=== PATIENT | female | born 1950 | race Caucasian/White ===

== ENCOUNTER 2017-06-14 20:23 | Observation (INO) | payer MEDICARE, BC ==
--- NOTE | 2017-06-15 00:39 | ER Document Report ---
ED General - General Mode of Arrival: Wheelchair Information source: Patient, Relative - daughter TRAVEL OUTSIDE OF THE [place] IN LAST 30 DAYS: No <MATILDE AJ - Last Filed: 06/15/17 03:49> <ANDREAS MERAZ - Last Filed: 06/15/17 03:49> - General Chief Complaint: Altered Mental Status Stated Complaint: SLURRED SPEECH Time Seen by Provider: 06/15/17 00:05 Notes: Patient is a 59-year-old female presented to emergency department for and episode of confusion and disorientation. Patient is here visiting her daughter who states the patient had a busy day today and she took a nap in the chair this evening. Daughter states the patient woke up and was very disoriented to person and time, confused, not making sentences, and she was also aggressive/ mean. Patient did have some slight tingling in her face and was unsteady when walking so she held onto 2 people, 1 on each side. Patient's episode lasted about 30 minutes and daughter states that she is back to baseline now. Patient has a history of diabetes mellitus and used to have hypertension but it has gotten better recently over the last several years. Patient did have a mini stroke or possible TIA in February. Patient has had CTs, MRI, echocardiogram, and been evaluated by neurology since this episode. Patient is a poor historian. Patient takes a daily Aspirin. Patient denies any history of A-fib or irregular heart rate. Patient has no known drug allergies. (MATILDE AJ) - Related Data Allergies/Adverse Reactions: No Known Allergies Allergy (Unverified 06/14/17 20:32) Past Medical History - General Information source: Patient, Relative - daughter - Social History Smoking Status: Never Smoker Cigarette use (# per day): No Chew tobacco use (# tins/day): No Smoking Education Provided: No Frequency of alcohol use: Rare Drug Abuse: None Family History: None Patient has suicidal ideation: No Patient has homicidal ideation: No - Past Medical History Cardiac Medical History: Reports: Hx Hypertension Neurological Medical History: Reports: Hx Cerebrovascular Accident - possible mini stroke or TIA February 2017 Endocrine Medical History: Reports: Hx Diabetes Mellitus Type 2 Surgical Hx: Negative <MATILDE AJ - Last Filed: 06/15/17 03:49> Review of Systems - Review of Systems Constitutional: No symptoms reported EENT: No symptoms reported Cardiovascular: No symptoms reported. denies: Chest pain Respiratory: No symptoms reported. denies: Short of breath Gastrointestinal: No symptoms reported Genitourinary: No symptoms reported Female Genitourinary: No symptoms reported Musculoskeletal: See HPI Skin: No symptoms reported Hematologic/Lymphatic: No symptoms reported Neurological/Psychological: See HPI, Confusion, Tingling, Other -: Yes All other systems reviewed and negative <MATILDE AJ - Last Filed: 06/15/17 03:49> Physical Exam - Vital signs Interpretation: Normal <MATILDE AJ - Last Filed: 06/15/17 03:49> <AMANDADEEPIKAANDREAS - Last Filed: 06/15/17 03:49> - Vital signs Vitals: Temp Pulse Resp BP Pulse Ox 97.4 F 74 16 130/59 H 92 06/14/17 20:32 06/14/17 20:32 06/14/17 20:32 06/14/17 20:32 06/14/17 20:32 - Notes Notes: GENERAL: Alert, interacts well. No acute distress. HEAD: Normocephalic, atraumatic. EYES: Pupils equal, round, and reactive to light. Extraocular movements intact. ENT: Oral mucosa moist, tongue midline. NECK: Full range of motion. Supple. Trachea midline. LUNGS: Clear to auscultation bilaterally, no wheezes, rales, or rhonchi. No respiratory distress. HEART: Regular rate and rhythm. No murmurs, gallops, or rubs. ABDOMEN: Soft, non-tender. Non-distended. Bowel sounds present in all 4 quadrants. EXTREMITIES: Moves all 4 extremities spontaneously. No edema, radial and dorsalis pedis pulses 2/4 bilaterally. No cyanosis. NEUROLOGICAL: Alert and oriented x3. Normal speech. Cranial nerves II through XII grossly intact. Biceps and patellar DTRs 2+ bilaterally. Finger to nose and heel to koroma tests are normal. Dull/sharp sensation tests normal. PSYCH: Normal affect, normal mood. SKIN: Warm, dry, normal turgor. No rashes or lesions noted. (MATILDE AJ) Course - Laboratory Result Diagrams: 06/15/17 00:40 06/15/17 00:40 - Consults Dr. Mosquera Time consulted: 02:25 <MATILDE AJ - Last Filed: 06/15/17 03:49> - Laboratory Result Diagrams: 06/15/17 00:40 06/15/17 00:40 <ANDREAS MERAZ - Last Filed: 06/15/17 03:49> - Re-evaluation Re-evalutation: 06/15/17 02:41 CBC shows leukopenia with a white cell count of 3.4, thrombocytopenia with platelets of 99, coags normal, CMP shows acute renal failure with a BUN of 25 and creatinine of 1.3, calcium, total and direct bilirubin all elevated, other LFTs normal, cardiac enzymes negative, CT scan of the head shows an old lacunar infarct inside the left basal ganglia. Chest x-ray shows no acute process. EKG is nonischemic and there is no atrial fibrillation. Patient was given aspirin, NIH stroke scale 0, patient did not present within 3 hours of last known well and all symptoms have resolved. Patient was discussed with Dr. Mosquera and will be placed on his service in observation status. ( ANDREAS MERAZ) - Vital Signs Vital signs: Temp Pulse Resp BP Pulse Ox 97.4 F 74 15 135/70 H 96 06/14/17 20:32 06/15/17 00:33 06/15/17 00:36 06/15/17 00:36 06/15/17 00:36 - Laboratory Laboratory results interpreted by me: 06/15/17 06/15/17 00:40 00:40 WBC 3.4 L Plt Count 99 L BUN 25 H Creatinine 1.30 H Est GFR ( Amer) 49 L Est GFR (Non-Af Amer) 41 L Glucose 53 L Calcium 10.5 H Total Bilirubin 2.0 H Direct Bilirubin 0.5 H AST 38 H - EKG Interpretation by Me Additional EKG results interpreted by me: 06/15/17 02:42 EKG shows sinus rhythm at a rate of 69, normal axis, normal intervals, no ST segment elevations or depressions, there is one isolated T-wave inversion in lead III which is nonspecific per my interpretation. (ANRDEAS MERAZ) - Consults Dr. Mosquera Reason for consultation: 06/15/17 02:[address] Mosquera, he will admit the patient to [facility] observation. (MATILDE AJ) Discharge <MATILDE AJ - Last Filed: 06/15/17 03:49> - Discharge Admitting Provider: [facility] Admitted: [facility] <ANDREAS MERAZ - Last Filed: 06/15/17 03:49> - Discharge Clinical Impression: TIA (transient ischemic attack) Qualifiers: Transient cerebral ischemia type: unspecified Qualified Code(s): G45.9 - Transient cerebral ischemic attack, unspecified Hypertension Qualifiers: Hypertension type: essential hypertension Qualified Code(s): I10 - Essential ( primary) hypertension Condition: Good Disposition: ADMITTED OBSERVATION Scribe Attestation: 06/15/17 03:49 I personally performed the services described in the documentation, reviewed and edited the documentation which was dictated to the scribe in my presence, and it accurately records my words and actions. (ANDREAS MERAZ) Scribe Documentation - Scribe Written by Scribe:: Kristine Schmitt 06/15/2017 01:10 acting as scribe for :: Rufus <MATILDE AJ - Last Filed: 06/15/17 03:49> ED NIH Stroke Scale - NIH Stroke Scale When completed:: Protocol *: 1. NIH scale should be completed with appropriate accompanying assessment tools. *: 2. The NIH should reflect what the patient is capable of doing and should not be coached by the clinician. 1a. Level of Consciousness: 0=Alert;keenly responsive -: 1=Drowsy -: 2=Obtunded -: 3=Coma/unresponsive or reflex to noxious stimuli. 1a. Responses: 0 1b. Orientation Questions: a. What month is it? -: b. How old are you? -: 0=Answers both questions correctly. -: 1=Answers one question correctly or patient is intubated or has orotracheal trauma. -: 2=Answers neither question correctly. 1b. Responses: 0 1c. Response to commands: a. Open and close eyes? -: b. Contact Lens Flashing Puncher and release hand? -: Credit is given despite weakness. Demonstration of task is permitted. Substitute command if hands cannot be used. -: 0=Performs both tasks correctly -: 1=Performs one task correctly -: 2=Performs neither task correctly 1c. Responses: 0 2. Gaze: Establish eye contact and instruct patient to "Follow my finger" -: 0=Normal -: 1=Partial gaze palsy. Gaze is abnormal in one or both eyes, but where forced deviation or total gaze paresis is not present. -: 2=Forced deviation or total gaze paresis. 2. Responses: 0 3. Visual Ying: Sees fingers in all four quadrants. -: 0=No visual loss. -: 1=Partial hemianopsia. -: 2=Complete hemianopsia. -: 3=Bilateral hemianopsia (including Cortical blindness) 3. Responses: 0 4. Facial Movement: Instruct patient to: -: a. Show me your teeth -: b. Raise your eyebrows -: c. Close your eyes -: d. Smile -: 0=Normal symmetrical movement -: 1=Minor paralysis (flattened nasolabial fold, asymmetry on smiling). -: 2=Partial paralysis (total or near total paralysis of lower face). -: 3=Complete paralysis of upper and lower face 4. Responses: 0 5. Motor functions (left arm): Alternate sides and extend each arm with palms down (90 degrees if sitting or 45 degrees for supine). -: 0=No drift;limb holds for full 10 seconds. -: 1=Drift; limb holds but drifts down before full 10 seconds, but does not hit bed. -: 2=Some effort against gravity; limb cannot get to or maintain position. -: 3=No effort against gravity; limb falls. -: 4=No movement. -: UN=Amputation, joint fusion, explain in comments. 5. Responses (left arm): 0 5. Motor Functions (right arm): Alternate sides and extend each arm with palms down (90 degrees if sitting or 45 degrees for supine). -: 0=No drift;limb holds for full 10 seconds. -: 1=Drift; limb holds but drifts down before full 10 seconds, but does not hit bed. -: 2=Some effort against gravity; limb cannot get to or maintain position. -: 3=No effort against gravity; limb falls. -: 4=No movement. -: UN=Amputation, joint fusion, explain in comments. 5. Responses (right arm): 0 6. Motor Functions (left leg): With patient lying supine, alternate sides and extend each leg (30 degrees always while supine). -: 0=No drift, leg holds position for full 5 seconds -: 1=Drift; leg falls before full 5 seconds but does not hit bed. -: 2=Some effort against gravity, leg falls to bed but some effort against gravity. -: 3=No effort against gravity, leg falls to bed immediately. -: 4=No movement. -: UN=Amputation, joint fusion; explain in comments. 6. Responses (left leg): 0 6. Motor Functions (right leg): With patient lying supine, alternate sides and extend each leg (30 degrees always while supine). -: 0=No drift, leg holds position for full 5 seconds -: 1=Drift; leg falls before full 5 seconds but does not hit bed. -: 2=Some effort against gravity, leg falls to bed but some effort against gravity. -: 3=No effort against gravity, leg falls to bed immediately. -: 4=No movement. -: UN=Amputation, joint fusion; explain in comments. 6. Responses (right leg): 0 7. Limb Ataxia: With eyes open instruct patient to: -: a. "Touch your finger to your nose". -: b. "Touch your heel to your koroma" -: 0=Absent -: 1=Present in one limb. -: 2=Present in two limbs. -: UN=Amputation or joint fusion; explain in comments. 7. Responses: 0 8. Sensory: Test sensation using pinprick or noxious stimuli. Test as many body parts as possible. -: 0=Normal;no sensory loss -: 1=Mile to moderate sensory loss (patient feels pin prick but is less sharp on affected side). -: 2=Severe or total sensory loss. 8. Responses: 0 9. Best Language: Instruct patient to: -: a. "Describe what you see in this picture." -: b. "Name the items in this picture." -: c. "Read these sentences." -: 0=No aphasia, normal -: 1=Mild to moderate aphasia. -: 2=Severe aphasia -: 3=Mute, global aphasia, no usable speech or auditory comprehension. 9. Responses: 0 10. Articulation, Dysarthia: Instruct patient to: -: "Read these words" or "Repeat these words" -: 0=Normal -: 1=Mild to moderate; patient may slur some words but can be understood without difficulty. -: 2=Severe; patients speech so slurred as to be unintelligible in the absence of dysphasia. -: UN=Intubated or other physical barrier, explain in comments. 10. Responses: 0 11. Extinction or inattention: 0=No abnormality -: 1= Visual, tactile, auditory, spatial, or personal inattention or extinction to bilateral simulation in one or the sensory modalities. -: 2=Profound evette-inattention or evette-inattention to more than one modality; does not recognize own hand. 11. Responses: 0 Total Score: 0 <MATILDE AJ - Last Filed: 06/15/17 03:49> ED Alteplase Inc/Exc Criteria - Date/Time patient last known well: Date/Time: 06/14/2017 15:00 - Date/Time patient arrived in ED: _: 06/14/2017 20:23 - Inclusion Criteria: 1: Patient presented to ED within 3 hours of acute ischemic stroke symptom onset ? -: No 2: Did baseline CT exclude intracranial hemorrhage and/or other risk factors? -: Yes 3: Is the age of the patient 18 years of age or greater? -: No : If any of the above questions are answered "NO" then stop, patient is not a candidate for Alteplase, : If all of the above questions are answered "YES" then continue with Exclusion Criteria. - Exclusion Criteria: 1: Is there evidence of intracranial hemorrhage on baseline CT? -: No 2: Is there suspicion of subarachnoid hemorrhage (even if CT negative)? -: No 3: Is there a history of serious head trauma, recent previous stroke or WI within 3 months? -: No 4: Does the patient have a clinical presentation consistent with WI or post-WI pericarditis? -: No 5: Is there history of intracranial hemorrhage? 6: On repeated measurement is Systolic BP greater than 185mmHg or Diastolic BP greater that 110 mmHg and is aggressive treatment needed to reduce blood pressure to these limits (e.g. constant infusion of an anti-hypertensive)? -: No 7: Did the patient awake with stroke symptoms? -: Yes 8: Has the patient had a lumbar puncture or an arterial puncture at a non- compressile site within 7 days? -: No 9: With in the last 14 days did the patient have surgery or major trauma? -: No 10: Is the patient or less than 2 weeks? -: No 11: Was there any active bleeding or acute trauma? -: No 12: Does the patient have intracranial neoplasm, arteriovenous malformation or aneurysm? -: No 13: Does the patient have abnormal glucose (less than 50 or greater than 400mg/ dl)? Record glucose in Comment. -: No 14: Patient has rapidly improving symptoms at the time Alteplase is to be Administered. -: Yes - symptoms resolved now 15: Does the patient have any risks for bleeding, including but not limited to: a.: Current use of Coumadin with PT greater than 15 seconds or INR greater than 1.7. b.: Current use of Pradaxa (Dabigatran). c.: Heparin administereed within the past 48 hours and PTT elevated. d.: Platelet count less than 100,000/mm. e.: Major surgery or serious trauma within 14 days. f.: Gastrointestinal or gynecological urinary bleeding within 14 days. g.: Myocardial Infarction (WI) within 3 months. -: No : If the answer to any of the above questions is "YES" then stop, the patient is not a candidate for Alteplase. : If the answer to all of the above questions is "NO" then the patient may be eligible for the Administration of Alteplase. : If the patient is noted to have seizure activity at onset of Stroke symptoms; Consult Neurologist for further evaluation. - The patient is: -: Included and is eligible to receive Alteplase. *Initiate bed placement at higher level of care* --: No Reviewd risks & benefits of thrombolytic therapy: I have reviewed the risks and benefits of thrombolytic therapy with the patient and/or his/her family. -: Excluded and not eligible to receive Alteplase for the above exclusions. --: Yes - symptoms resolved -: Excluded and not eligible to receive Alteplase for other reasons (specify in comments): - Diagnosis of TIA: -: Patient presented with transient symptoms that are now resolved and no other neurologic findings are currently present. List symptoms in comments. -: Yes -: Patient is NOT a candidate for tPA. -: Yes -: ____(put name in comment) has been consulted for admission and continued evaluation of risk factor assessment. Comment: Eveline <ANDREAS MERAZ - Last Filed: 06/15/17 03:49>
[2017-06-15 01:00] LABS: ABSOLUTE EOSINOPHILS # (AUTO) 0.1 10^3/uL (0.0-0.6); ABSOLUTE LYMPHOCYTES (AUTO) 1.1 10^3/uL (0.5-4.7); ABSOLUTE MONOCYTES (AUTO) 0.2 10^3/uL (0.1-1.4); ABSOLUTE NEUT (AUTO) 1.9 10^3/uL (1.7-8.2); BASOPHILS % (AUTO) 1.2 % (0-2); EOSINOPHILS % (AUTO) 2.5 % (0-6); HEMATOCRIT 39.5 % (36.0-47.0); HEMOGLOBIN 13.7 g/dL (12.0-15.5); HGB HCT DIFFERENCE 1.6; MEAN CORPUSCULAR HEMOGLOBIN 30.9 pg (27.0-33.4); MEAN CORPUSCULAR HGB CONC 34.7 g/dL (32.0-36.0); MEAN CORPUSCULAR VOLUME 89 fl (80-97); MONOCYTES % (AUTO) 7.3 % (3-13); PROTHROMBIN TIME 12.9 SEC (11.4-15.4); RED BLOOD COUNT 4.43 10^6/uL (3.72-5.28); RED CELL DISTRIBUTION WIDTH 13.9 % (11.5-14.0); WHITE BLOOD COUNT 3.4 10^3/uL (4.0-10.5)
[2017-06-15 01:01] LABS: PARTIAL THROMBOPLASTIN TIME 33.4 SEC (23.5-35.8)
[2017-06-15 01:21] LABS: ALANINE AMINOTRANSFERASE 27 U/L (9-52); ALBUMIN 4.4 g/dL (3.5-5.0); ALKALINE PHOSPHATASE 57 U/L (38-126); ANION GAP 12 (5-19); ASPARTATE AMINO TRANSFERASE 38 U/L (14-36); BILIRUBIN,DIRECT 0.5 mg/dL (0.0-0.4); BLOOD UREA NITROGEN 25 mg/dL (7-20); CALCIUM 10.5 mg/dL (8.4-10.2); CARBON DIOXIDE 25 mmol/L (22-30); CHLORIDE 102 mmol/L (98-107); CREATINE KINASE 46 U/L (30-135); GLUCOSE 53 mg/dL (75-110); POTASSIUM 4.5 mmol/L (3.6-5.0); SODIUM 138.8 mmol/L (137-145); TOTAL PROTEIN 7.4 g/dL (6.3-8.2)
--- NOTE | 2017-06-15 01:27 | RADIOLOGY REPORT (SQ) ---
EXAM DESCRIPTION: CT HEAD WITHOUT COMPLETED DATE/TIME: 06/15/2017 1:00 am REASON FOR STUDY: confusion COMPARISON: None. TECHNIQUE: Axial images acquired through the brain without intravenous contrast. Images reviewed wi th bone, brain and subdural windows. Images stored on PACS. All CT scanners at this facility use dose modulation, iterative reconstruction, and/or weight based d osing when appropriate to reduce radiation dose to as low as reasonably achievable (ALARA). [facility]: Dose Right [facility]: CareDose [facility]: Dose Right [facility]: Teradose 4D [facility]: Smart [employer] RADIATION DOSE: Up-to-date CT equipment and radiation dose reduction techniques were employed. CTDIv ol: 55.3 mGy. DLP: 996 mGy-cm. mGy. LIMITATIONS: None. FINDINGS: VENTRICLES: Normal size and contour. CEREBRUM: No masses. No hemorrhage. No midline shift. No evidence for acute infarction. Normal gra y/white matter differentiation. No areas of low density in the white matter. Moderate lacunar infarc ts of the left internal capsule. CEREBELLUM: No masses. No hemorrhage. No alteration of density. No evidence for acute infarction. EXTRAAXIAL SPACES: No fluid collections. No masses. ORBITS AND GLOBE: No intra- or extraconal masses. Normal contour of globe without masses. CALVARIUM: No fracture. PARANASAL SINUSES: No fluid or mucosal thickening. SOFT TISSUES: No mass or hematoma. OTHER: No other significant finding. IMPRESSION: No acute findings. Lacunar infarct of the left basal ganglia. EVIDENCE OF ACUTE STROKE: NO. COMMENT: Quality ID # [id number]: Final reports with documentation of one or more dose reduction techniques (e.g., Automated exposure control, adjustment of the mA and/or kV according to patient size, use of iterative reconstruction technique) TECHNICAL DOCUMENTATION: JOB ID: [id number] [employer]- All Rights Reserved
--- NOTE | 2017-06-15 01:31 | RADIOLOGY REPORT (SQ) ---
EXAM DESCRIPTION: CHEST SINGLE VIEW COMPLETED DATE/TIME: 06/15/2017 1:03 am REASON FOR STUDY: confusion COMPARISON: None. EXAM PARAMETERS: NUMBER OF VIEWS: One view. TECHNIQUE: Single frontal radiographic view of the chest acquired. RADIATION DOSE: NA LIMITATIONS: None. FINDINGS: LUNGS AND PLEURA: No opacities, masses or pneumothorax. No pleural effusion. Moderate dylon g volumes. MEDIASTINUM AND HILAR STRUCTURES: No masses. Contour normal. HEART AND VASCULAR STRUCTURES: Heart normal in size. Normal vasculature. BONES: No acute findings. HARDWARE: None in the chest. OTHER: No other significant finding. IMPRESSION: Moderate lung volumes. NO ACUTE RADIOGRAPHIC FINDING IN THE CHEST. TECHNICAL DOCUMENTATION: JOB ID: [id number]
[2017-06-15 01:33] LABS: CREATINE KINASE MB 0.52 ng/mL (<4.55)
[2017-06-15 01:40] LABS: TROPONIN I < 0.012 ng/mL
[2017-06-15 04:53] LABS: APPEARANCE,URINE CLEAR; BILIRUBIN,URINE NEGATIVE (NEGATIVE); GLUCOSE, URINE NEGATIVE (NEGATIVE); KETONES,URINE TRACE mg/dL (NEGATIVE); LEUKOCYTE ESTERASE,URINE NEGATIVE (NEGATIVE); NITRITE,URINE NEGATIVE (NEGATIVE); PROTEIN,URINE NEGATIVE (NEGATIVE); URINE SPECIFIC GRAVITY 1.008; UROBILINOGEN,URINE NEGATIVE mg/dL (<2.0)
[2017-06-15] MEDS ORDERED: DEXTROSE 40% GEL 15 GM TUBE PO PRN ×2 (05:10)
[2017-06-15] MEDS ORDERED: GLUCAGON,HUMAN RECOMB 1 MG INJ IM PRN (05:10)
[2017-06-15] MEDS ORDERED: INSULIN LISPRO 100 UNIT/ML 3 ML VIAL SUBCUT PRN ×2 (05:10→05:29)
[2017-06-15] MEDS ORDERED: DEXTROSE 50%-WATER 25 GM/50 ML DISP.SYRIN IV PRN ×2 (05:10)
[2017-06-15] MEDS ORDERED: NORMAL SALINE 1000 ML 1,000 ML IV PRN (05:12)
[2017-06-15] MEDS ORDERED: ATORVASTATIN CALCIUM 40 MG TABLET PO SCH (05:15)
[2017-06-15] MEDS ORDERED: ACETAMINOPHEN 325 MG TABLET PO PRN (05:20)
[2017-06-15] MEDS ORDERED: PROMETHAZINE HCL 25 MG TABLET PO PRN (05:20)
--- NOTE | 2017-06-15 05:47 | PDOC H&P ---
History of Present Illness Admission Date/PCP: 06/15/17 02:51 PT. VISITING FROM [place] Patient complains of: Altered mental status, facial paresthesias, ambulatory dysfunction History of Present Illness: ROXANE HANDY is a 67 year old female with underlying hypertension, and types 1 and 2 diabetes mellitus, along with prior stroke, suffered in February of this year who presents to the emergency room for evaluation of above complaints. Patient has been discussed with emergency room physician who evaluated the patient. Patient herself really does not remember the evenings events; daughter is present at her side, with patient's approval, and does provide some information. No seizure activity per daughter. Patient took a nap in a chair the evening of the . When she awoke, she was disoriented to person and time, confused, and aggressive and mean. Slight tingling in her face, and unsteady with walking, requiring 1 person on each side to assist her with ambulation. Above episode lasted about 30 minutes. Daughter feels she is pretty much back to her baseline now. Somewhat similar symptoms in February. Outpatient workup at that time; daughter states carotid Doppler was not performed. Patient denies pain, including headache, chest or abdominal pain. No nausea vomiting, fever or chills. No diarrhea or dysuria. Dictation via voice recognition software. Laboratory results are listed in [facility] [facility] and are reviewed. X-ray summary results are listed below, with full report(s) reviewed. . EKG reviewed. No prior EKG available for comparison. Social history/personal habits: . Lives alone. Retired. No use of tobacco or illicit drugs. Rare glass of wine. No known drug allergies. Home medications initially autopopulated into [employer] may not accurately reflect patient's true medications, dosages, and/or frequencies. sleep lab technologist to reconcile medications. Unfortunately, patient not certain of all medications/dosages/frequencies. REVIEW OF SYSTEMS: Constitutional: No fever or chills. Eyes: Reading glasses. ENT: No swallowing problems or complaints. Denies hearing loss. Pulmonary: No current complaints. Cardiovascular: No current complaints, including chest pain. Gastrointestinal: No current complaints, including nausea or vomiting. Skin: No current complaints, including rashes. Hematologic: Denies easy bruising. Neurologic: See history and present illness. Musculoskeletal: No current or chronic joint complaints, such as arthritis. Psychiatric: Denies anxiety or depression. Endocrine: No current complaints, including polyuria. Genitourinary: No current complaints, including dysuria. PHYSICAL EXAMINATION: Female emergency room nurse Dorina is present. Daughter is present at her side; patient approves. 5 feet 4 inches tall. 90.8 kg. BMI 34.4 kg/m. Blood pressure 114/61. Pulse 68 and regular. 94% saturation on room air. Respirations are 17 and unlabored. Temperature 97.4. Slightly obese otherwise well-nourished well-developed female appearing perhaps a bit younger than her stated age. Pleasant awake alert and cooperative. No obvious distress other than somewhat anxious. Skin is warm and dry. No grossly obvious evidence of rash in areas of skin examined. No subcutaneous nodules palpated. ENT: Hearing grossly normal to normal conversation. Tongue midline on protrusion pink and slightly tacky. Eyes: No scleral icterus. Pupils equal and reactive to light at 4 mm. [place] conjunctivae. Neck is supple and nontender to gentle active range of motion and palpation. Midline trachea. No palpable thyroid nodule mass enlargement or tenderness. Lymphatic: No palpable cervical or clavicular nodes. Neck and lymphatic exams limited by patient body habitus. Psychiatric: Reasonable insight into acute and chronic medical issues. Oriented to time location and why here. Lungs: Auscultation reveals clear and equal breath sounds bilaterally. No use of accessory respiratory muscles. Cardiovascular: Heart regular rate and rhythm, without gallop murmur or rub. No carotid or abdominal aortic bruits. No ankle or pedal edema. Palpable dorsalis pedis pulses. Abdomen:soft slightly distended nontender with positive bowel sounds. Unable to adequately evaluate abdomen for masses or organomegaly due to distention. Extremities: Hands and feet are warm and dry. No calf tenderness to compression. No grossly obvious visual evidence of calf swelling. Gentle manipulation of upper and lower extremities fails to reveal any obvious evidence of injury or instability to involve major joints. Cranial Nerves II through XII are grossly intact. Light touch intact at face, upper and lower extremities. Motor function of major muscle groups upper and lower extremities 5 over 5 and symmetric. Patellar reflexes absent. Absent Babinski. No nystagmus. Fingertip to nose intact and symmetric bilaterally. Past Medical History Cardiac Medical History: Reports: Hypertension Denies: Atrial Fibrillation, Congestive Heart Failure, Coronary Artery Disease, DVT, Myocardial Infarction, Hyperlipidema, Pulmonary Embolism Pulmonary Medical History: Denies: Asthma, Chronic Obstructive Pulmonary Disease (COPD), Sleep Apnea EENT Medical History: Reports: Eyes - Reading glasses Denies: Ears, Throat Neurological Medical History: Reports: Ischemic CVA Denies: Hemorrhagic CVA, Seizures Endocrine Medical History: Reports: Diabetes Mellitus Type 1, Diabetes Mellitus Type 2 Denies: Hyperthyroidism, Hypothyroidism Renal/ Medical History: Reports: None GI Medical History: Denies: Cirrhosis, Gastroesophageal Reflux Disease, Hepatitis, Peptic Ulcer Disease Musculoskeltal Medical History: Denies: Arthritis Skin Medical History: Reports: None Psychiatric Medical History: Denies: Alcohol Dependency, Depression, General Anxiety Disorder, Substance Abuse, Tobacco Dependency Infectious Medical History: Denies: Hepatitis B, Hepatitis C Past Surgical History Past Surgical History: Reports: Tonsillectomy Social History Information Source: Patient, Relative - Daughter, Emergency Med Personnel, [facility] Records Lives with: Alone Smoking Status: Never Smoker Frequency of Alcohol Use: None Drugs: None - Advance Directive Resuscitation Status: Full Code Surrogate healthcare decision maker:: Daughter Pallavi Núñez Family History Family History: None Parental Family History Reviewed: Yes - Mother of aneurysm; father of lung cancer Children Family History Reviewed: Yes - Healthy Sibling(s) Family History Reviewed.: Yes - One sister ; surviving sister healthy Medication/Allergy Home Medications: RX: Aspirin [Aspirin 81 mg Chewable Tablet] 81 mg PO DAILY 06/15/17 RX: Calcium Carbonate/Vitamin D3 [Calcium 500-Vit D3 400 Tablet] 1 tab PO Q12 RX: Escitalopram Oxalate [Lexapro 10 mg Tablet] 10 mg PO DAILY 06/15/17 RX: Irbesartan [Avapro] 300 mg PO DAILY 06/15/17 RX: Loratadine [Claritin 10 mg Tablet] 10 mg PO DAILY 06/15/17 RX: [place]-3/Dha/Epa/Fish Oil [Fish Oil 1,000 mg Softgel] 1 cap PO DAILY RX: Sitagliptin Phos/Metformin HCl [Janumet 50-1,000 mg Tablet] 1 tab PO BID RX: Insulin Glargine,Hum.rec.anlog [Lantus Solostar] 30 unit SQ QHS #0 06/16/17 Allergies/Adverse Reactions: No Known Allergies Allergy (Unverified 06/14/17 20:32) Physical Exam Vital Signs: Temp Pulse Resp BP Pulse Ox 97.4 F 66 12 118/62 94 06/14/17 20:32 06/15/17 03:00 06/15/17 05:01 06/15/17 05:01 06/15/17 05:01 Results Laboratory Results: 06/15/17 04:25 Urine Color YELLOW Urine Appearance CLEAR Urine pH 5.0 Ur Specific Gleason 1.008 Urine Protein NEGATIVE Urine Glucose (UA) NEGATIVE Urine Ketones TRACE H Urine Blood SMALL H Urine Nitrite NEGATIVE Ur Leukocyte Esterase NEGATIVE Urine WBC (Auto) 2 Urine RBC (Auto) 1 Impressions: Chest X-Ray 06/15/17 00:38 IMPRESSION: Moderate lung volumes. NO ACUTE RADIOGRAPHIC FINDING IN THE CHEST. Head CT 06/15/17 00:38 IMPRESSION: No acute findings. Lacunar infarct of the left basal ganglia. EVIDENCE OF ACUTE STROKE: NO. Assessment & Plan - Diagnosis (1) Acute encephalopathy Is this a current diagnosis for this admission?: Yes Plan: Patient now back to baseline, per daughter. Follow clinically. (2) Acute focal neurological deficit Is this a current diagnosis for this admission?: Yes Plan: Patient will be placed in observation bed admitted under CVA/TIA protocol. Multiple imaging procedures, intracranial, vascular, and cardiac. lipid panel. Permissive hypertension. Patient is a full code. I have strongly urged patient not to get out of bed without calling nursing staff, to avoid a fall with injury. Knee high SCDs for DVT prophylaxis; with thrombocytopenia, will forego Lovenox or heparin at this point in time. Impression and plans were discussed with patient and daughter, both of whom concur Time spent in evaluation and management of patient: 72 minutes (3) Ambulatory dysfunction Is this a current diagnosis for this admission?: Yes Plan: Physical therapy consult. (4) Elevated LFTs Is this a current diagnosis for this admission?: Yes Plan: Denies underlying biliary disease. Repeat chemistry. (5) Facial paresthesia Is this a current diagnosis for this admission?: Yes (6) Hypoglycemia Is this a current diagnosis for this admission?: Yes (7) Neutropenia Qualifiers: Neutropenia type: unspecified Qualified Code(s): D70.9 - Neutropenia, unspecified Is this a current diagnosis for this admission?: Yes Plan: No prior labs available for comparison. Follow-up CBC with differential. (8) Renal insufficiency Is this a current diagnosis for this admission?: Yes Plan: No prior labs available for comparison. Patient denies any known underlying kidney disease. Follow-up chemistry. (9) Thrombocytopenia Is this a current diagnosis for this admission?: Yes Plan: Repeat CBC with differential. (10) History of CVA (cerebrovascular accident) Is this a current diagnosis for this admission?: Yes (11) Hypertension Qualifiers: Hypertension type: essential hypertension Qualified Code(s): I10 - Essential (primary) hypertension Is this a current diagnosis for this admission?: Yes Plan: Permissive hypertension. (12) Diabetes mellitus type 1 Qualifiers: Diabetes mellitus complication status: without complication Qualified Code( s): E10.9 - Type 1 diabetes mellitus without complications Is this a current diagnosis for this admission?: Yes Plan: Clear liquid diet initially; advance as tolerated. Accu-Cheks with appropriate sliding scale coverage. Resume home medications as appropriate once these have been determined and reviewed. (13) Diabetes mellitus type 2 in obese Is this a current diagnosis for this admission?: Yes - Time Time Spent: Greater than 70 Minutes Anticipated discharge: Home Within: within 24 hours
--- NOTE | 2017-06-15 08:25 | EKG REPORT ---
SEVERITY:- NORMAL ECG - SINUS RHYTHM : Confirmed by: Cj Castro MD 15-Jun-2017 08:24:14
[2017-06-15 09:02] LABS: ABSOLUTE EOSINOPHILS # (AUTO) 0.1 10^3/uL (0.0-0.6); ABSOLUTE LYMPHOCYTES (AUTO) 0.9 10^3/uL (0.5-4.7); ABSOLUTE MONOCYTES (AUTO) 0.2 10^3/uL (0.1-1.4); ABSOLUTE NEUT (AUTO) 1.4 10^3/uL (1.7-8.2); BASOPHILS % (AUTO) 0.5 % (0-2); EOSINOPHILS % (AUTO) 3.5 % (0-6); HEMATOCRIT 37.6 % (36.0-47.0); HEMOGLOBIN 12.9 g/dL (12.0-15.5); HGB HCT DIFFERENCE 1.1; LYMPHOCYTES % (AUTO) 34.5 % (13-45); MEAN CORPUSCULAR HEMOGLOBIN 30.7 pg (27.0-33.4); MEAN CORPUSCULAR HGB CONC 34.4 g/dL (32.0-36.0); MEAN CORPUSCULAR VOLUME 89 fl (80-97); RED BLOOD COUNT 4.21 10^6/uL (3.72-5.28); RED CELL DISTRIBUTION WIDTH 13.7 % (11.5-14.0); SEGMENTED NEUTROPHILS % (AUTO) 54.5 % (42-78); WHITE BLOOD COUNT 2.5 10^3/uL (4.0-10.5)
[2017-06-15 09:11] LABS: ALANINE AMINOTRANSFERASE 24 U/L (9-52); ALBUMIN 3.8 g/dL (3.5-5.0); ALKALINE PHOSPHATASE 56 U/L (38-126); ANION GAP 13 (5-19); ASPARTATE AMINO TRANSFERASE 28 U/L (14-36); BILIRUBIN,DIRECT 0.4 mg/dL (0.0-0.4); BILIRUBIN,TOTAL 1.7 mg/dL (0.2-1.3); BLOOD UREA NITROGEN 20 mg/dL (7-20); CALCIUM 9.8 mg/dL (8.4-10.2); CARBON DIOXIDE 24 mmol/L (22-30); CHLORIDE 102 mmol/L (98-107); CHOLESTEROL 184.39 mg/dL (0-200); CREATININE RESULT 1.25 mg/dL (0.52-1.25); Direct HDL 55 mg/dL (>40); GLUCOSE 170 mg/dL (75-110); SODIUM 138.8 mmol/L (137-145); TOTAL PROTEIN 6.2 g/dL (6.3-8.2); TRIGLYCERIDES 105 mg/dL (<150)
--- NOTE | 2017-06-15 09:15 | RADIOLOGY REPORT (SQ) ---
EXAM DESCRIPTION: MRI HEAD WITHOUT COMPLETED DATE/TIME: 06/15/2017 7:52 am REASON FOR STUDY: TIA VS CVA D69.6 THROMBOCYTOPENIA, UNSPECIFIED I10 ESSENTIAL (PRIMARY) HYPERTENS ION COMPARISON: CT brain 06/15/2017 TECHNIQUE: Multiplanar imaging includes non-contrasted T1, T2, FLAIR, and diffusion with ADC map seq uences. Images stored on PACS. LIMITATIONS: None. FINDINGS: ANATOMY: No brain parenchymal developmental anomalies. Normal vascular flow voids. Pituita ry fossa normal. CSF SPACES: Normal in size and contour. No hemorrhage. CEREBRUM: Old infarct, with focal encephalomalacia medial left basal ganglia best shown on axial T2 i mage 15. No MR evidence of acute ischemic change, acute intracranial hemorrhage, mass effect, or midline shift . POSTERIOR FOSSA: No signal alteration. No hemorrhage. No edema, masses or mass effect. Internal tito tory canals, cerebello-pontine angles, mastoids normal. DIFFUSION IMAGING: Negative for acute or sub-acute infarction. ORBITS: No masses. Globes normal. PARANASAL SINUSES: No fluid levels. Mucosa normal. OTHER: No other significant finding. IMPRESSION: Old infarct with focal encephalomalacia, medial left basal ganglia. No MR evidence of acute ischemic change, acute intracranial hemorrhage, mass effect, or midline shift . EVIDENCE OF ACUTE STROKE: NO. TECHNICAL DOCUMENTATION: JOB ID: [id number] [employer]- All Rights Reserved
[2017-06-15 09:21] LABS: DIRECT LDL 97 mg/dL (<100)
[2017-06-15] MEDS: DOCUSATE SODIUM 100 MG CAPSULE PO SCH ×2 (10:57→18:03)
[2017-06-15] MEDS: ASPIRIN 325 MG TABLET, ENT COATED PO SCH (10:57)
--- NOTE | 2017-06-15 15:07 | RADIOLOGY REPORT (SQ) ---
EXAM DESCRIPTION: CAROTID DOPPLER COMPLETED DATE/TIME: 06/15/2017 2:42 pm REASON FOR STUDY: TIA VS CVA D69.6 THROMBOCYTOPENIA, UNSPECIFIED I10 ESSENTIAL (PRIMARY) HYPERTENS ION I11.9 HYPERTENSIVE HEART DISEASE WITHOUT HEART FAILURE COMPARISON: None. TECHNIQUE: Grayscale ultrasound, Doppler velocity and spectra, and color Doppler images acquired of the extra-cranial carotid and vertebral arteries. Images stored on PACS. LIMITATIONS: None. FINDINGS: RIGHT CAROTID CCA Velocities: Within normal limits. ICA Velocities Peak systolic 0.81 m/s. End diastolic 0.17 m/s. Proximal ICA/CCA peak systolic ratio 1.0. Heterogeneous and irregular atherosclerotic plaquing is identified. LEFT CAROTID CCA Velocities: Within normal limits. ICA Velocities Peak systolic 0.95 m/s. End diastolic 0.24 m/s. Proximal ICA/CCA peak systolic ratio 1.1. Heterogeneous and irregular atherosclerotic plaquing is identified. VERTEBRAL ARTERIES: Antegrade flow. Normal waveforms. SUBCLAVIAN ARTERIES: No finding. OTHER: No other significant finding. IMPRESSION: NO HEMODYNAMICALLY SIGNIFICANT STENOSIS. COMMENT: Quality ID #[id number]: Velocity criteria are extrapolated from the diameter data as defined by t he Society of Radiologists in Ultrasound Consensus Conference. Radiology 2003: 229; 340-346. TECHNICAL DOCUMENTATION: JOB ID: [id number] [employer]- All Rights Reserved
--- NOTE | 2017-06-15 19:17 | XCELERA REPORT ---
[address] [address] Transthoracic Echocardiogram Report Name: ROXANE HANDY Age: 67 yrs Gender: Female : 1950 Patient Status: Inpatient Patient Location: [address] [place] [address] Study Date: 06/15/2017 01:20 PM Height: 64 in Weight: 201 lb BSA: 2.0 m2 Procedure: A complete two-dimensional transthoracic echocardiogram was performed (2D, M-mode, spectral and color flow Doppler). The study was technically difficult with many images being suboptimal in quality. Reason For Study: Hypertensive heart disease, TIA Ordering Physician: MAYUR JIMÉNEZ Performed By: Woody Aguirre Interpretation Summary The left ventricular ejection fraction is normal. There is mild concentric left ventricular hypertrophy. Doppler measurements suggest pseudonormalized left ventricular relaxation, which is associated with grade II/IV or mild to moderate diastolic dysfunction The right ventricular systolic function is normal. The left atrium is moderately dilated. The right atrium is normal in size There is a trace to mild amount of mitral regurgitation There is no mitral valve stenosis. There is no aortic valve stenosis No aortic regurgitation is present. There is a trace to mild amount of tricuspid regurgitation Tricuspid regurgitation jet envelope not well defined to measure RV systolic pressure accurately. The aortic root is not well visualized. The inferior vena cava appeared normal and decreased > 50% with respiration (RAP 5-10 mmHg) There is no pericardial effusion. MMode/2D Measurements & Calculations RVDd: 2.5 cm LVIDd: 4.7 cm FS: 23.3 % Ao root diam: 2.9 cm IVSd: 1.2 cm LVIDs: 3.6 cm EDV(Teich): 104.8 ml LVPWd: 1.2 cm ESV(Teich): 56.0 ml Ao root area: 6.5 cm2 EF(Teich): 46.6 % LA dimension: 3.9 cm Doppler Measurements & Calculations MV E max tere: MV P1/2t max tere: Ao V2 max: LV V1 max P.6 cm/sec 68.8 cm/sec 183.3 cm/sec 4.8 mmHg MV A max tere: MV P1/2t: 75.7 msec Ao max PG: LV V1 max: 85.7 cm/sec 13.4 mmHg 109.1 cm/sec MV E/A: 0.82 MVA(P1/2t): 2.9 cm2 MV dec slope: 266.4 cm/sec2 PA V2 max: PI end-d tere: TR max tere: RAP systole: 69.6 cm/sec 105.3 cm/sec 244.9 cm/sec 5.0 mmHg PA max PG: TR max P.9 mmHg 24.0 mmHg RVSP(TR): 29.0 mmHg Left Ventricle The left ventricle is grossly normal size. There is mild concentric left ventricular hypertrophy. The left ventricular ejection fraction is normal. Doppler measurements suggest pseudonormalized left ventricular relaxation, which is associated with grade II/IV or mild to moderate diastolic dysfunction. Wall motion cannot be accurately commented on, but no definite regional wall motion abnormalities noted. Right Ventricle The right ventricle is grossly normal size. There is normal right ventricular wall thickness. The right ventricular systolic function is normal. Atria The right atrium is normal in size. The left atrium is moderately dilated. Interarterial septum not well visualized and not well dopplered. Cannot comment on ASD/PFO presence. Mitral Valve There is mild to moderate mitral annular calcification. There is no mitral valve stenosis. There is a trace to mild amount of mitral regurgitation. Aortic Valve The aortic valve is sclerotic, but shows no functional abnormality. There is no aortic valve stenosis. No aortic regurgitation is present. Tricuspid Valve The tricuspid valve is not well visualized secondary to technical limitations. There is no tricuspid stenosis. There is a trace to mild amount of tricuspid regurgitation. Tricuspid regurgitation jet envelope not well defined to measure RV systolic pressure accurately. Pulmonic Valve The pulmonic valve is not well visualized. Great Vessels The aortic root is not well visualized. The inferior vena cava appeared normal and decreased > 50% with respiration (RAP 5-10 mmHg). Effusions There is no pericardial effusion. Incidental Findings No definite cardiac source of CVA/TIA noted on this particular trans- thoracic study. : MAYUR JIMÉNEZ > Freda De La Torre
--- NOTE | 2017-06-16 09:37 | PDOC DISCHARGE SUMMARY ---
General - Admit/Disc Date/PCP Admission Date/Primary Care Provider: 06/15/17 05:12 Discharge Date: 06/16/17 - Discharge Diagnosis (1) TIA (transient ischemic attack) Is this a current diagnosis for this admission?: Yes (2) Hypoglycemia Is this a current diagnosis for this admission?: Yes (3) Thrombocytopenia Is this a current diagnosis for this admission?: Yes (4) History of CVA (cerebrovascular accident) Is this a current diagnosis for this admission?: Yes (5) Hypertension Is this a current diagnosis for this admission?: Yes (6) Diabetes mellitus type 1 Is this a current diagnosis for this admission?: Yes - Additional Information Resuscitation Status: Full Code Discharge Diet: Cardiac - low fat, low salt, Diabetic - no concentrated sweets Discharge Activity: Activity As Tolerated, Balance Activity w/Rest Home Medications: Aspirin [Aspirin 81 mg Chewable Tablet] 81 mg PO DAILY 06/15/17 Calcium Carbonate/Vitamin D3 [Calcium 500-Vit D3 400 Tablet] 1 tab PO Q12 Escitalopram Oxalate [Lexapro 10 mg Tablet] 10 mg PO DAILY 06/15/17 Irbesartan [Avapro] 300 mg PO DAILY 06/15/17 Loratadine [Claritin 10 mg Tablet] 10 mg PO DAILY 06/15/17 [place]-3/Dha/Epa/Fish Oil [Fish Oil 1,000 mg Softgel] 1 cap PO DAILY 06/15/17 Sitagliptin Phos/Metformin HCl [Janumet 50-1,000 mg Tablet] 1 tab PO BID Insulin Glargine,Hum.rec.anlog [Lantus Solostar] 30 unit SQ QHS #0 06/16/17 Additional Information: Measured blood sugar 3 times a day and record bring to next physician visit. Return to the emergency room if symptoms recur. History of Present Illness Patient complains of: Altered mental status History of Present Illness: ROXANE HANDY is a 67 year old female ROXANE HANDY is a 67 year old female with underlying hypertension, and types 1 and 2 diabetes mellitus, along with prior stroke, suffered in February of this year who presents to the emergency room for evaluation of above complaints. Patient has been discussed with emergency room physician who evaluated the patient. Patient herself really does not remember the evenings events; daughter is present at her side, with patient's approval, and does provide some information. No seizure activity per daughter. Patient took a nap in a chair the evening of the . When she awoke, she was disoriented to person and time, confused, and aggressive and mean. Slight tingling in her face, and unsteady with walking, requiring 1 person on each side to assist her with ambulation. Above episode lasted about 30 minutes. Daughter feels she is pretty much back to her baseline now. Somewhat similar symptoms in February. Outpatient workup at that time; daughter states carotid Doppler was not performed. Patient denies pain, including headache, chest or abdominal pain. No nausea vomiting, fever or chills. No diarrhea or dysuria. Hospital Course Hospital Course: The patient was admitted to [facility]. The patient's symptoms have is already resolved. MRI of the brain was negative for acute stroke. Carotid Doppler did not reveal any significant stenosis. Echocardiogram likewise did not reveal any significant valvular defect nor cardiac source of TIA. Ejection fraction was reportedly normal. Her course was noted for episodes of hypoglycemia however. On initial presentation blood sugars were noted to be low. She was placed on sliding scale insulin and her basal insulin was held. The rest of the hospital stays unremarkable. Patient reportedly that her symptoms could be secondary to hypoglycemia and advised to cut down her basal insulin which she agrees. She was advised to record her blood sugar 3 times a day and bring to next physician visit. She was offered Aggrenox in place of aspirin but she refused at this time and thinks that her blood sugar might be the reason. He agreed to follow-up with her primary care as soon as possible likewise return to the emergency room if symptoms recur. Physical Exam Vital Signs: Temp Pulse Resp BP Pulse Ox 98.3 F 70 18 119/56 L 95 06/16/17 07:30 06/16/17 07:30 06/16/17 07:30 06/16/17 07:30 06/16/17 07:30 Intake & Output 06/15/17 06/16/17 06/17/17 06:59 06:59 06:59 Intake Total 240 3069 Balance 240 3069 Weight 91.5 kg 91.5 kg General appearance: PRESENT: no acute distress, cooperative Head exam: PRESENT: normocephalic Eye exam: PRESENT: conjunctiva pink, EOMI Mouth exam: PRESENT: moist, neck supple Neck exam: ABSENT: JVD Respiratory exam: PRESENT: clear to auscultation manda Cardiovascular exam: PRESENT: RRR. ABSENT: gallop GI/Abdominal exam: PRESENT: soft. ABSENT: distended, tenderness Extremities exam: ABSENT: pedal edema Neurological exam: PRESENT: alert, awake, oriented to person, oriented to place , oriented to time, oriented to situation Skin exam: PRESENT: dry, warm. ABSENT: cyanosis Results Laboratory Results: 06/15/17 08:34 06/15/17 08:34 06/15/17 08:34 WBC 2.5 L RBC 4.21 Hgb 12.9 Hct 37.6 MCV 89 MCH 30.7 MCHC 34.4 RDW 13.7 Plt Count 86 L Seg Neutrophils % 54.5 Lymphocytes % 34.5 Monocytes % 7.0 Eosinophils % 3.5 Basophils % 0.5 Absolute Neutrophils 1.4 L Absolute Lymphocytes 0.9 Absolute Monocytes 0.2 Absolute Eosinophils 0.1 Absolute Basophils 0.0 Impressions: Head MRI 06/15/17 00:00 IMPRESSION: Old infarct with focal encephalomalacia, medial left basal ganglia. No MR evidence of acute ischemic change, acute intracranial hemorrhage, mass effect, or midline shift. EVIDENCE OF ACUTE STROKE: NO. Chest X-Ray 06/15/17 00:38 IMPRESSION: Moderate lung volumes. NO ACUTE RADIOGRAPHIC FINDING IN THE CHEST. Head CT 06/15/17 00:38 IMPRESSION: No acute findings. Lacunar infarct of the left basal ganglia. EVIDENCE OF ACUTE STROKE: NO. Carotid Doppler Study 06/15/17 05:17 IMPRESSION: NO HEMODYNAMICALLY SIGNIFICANT STENOSIS. Qualifiers PATEINT BEING DISCHARGED WITH ANY OF THE FOLLOWING DIAGNOSIS?: No Plan Discharge Plan: Follow-up with primary care physician in 1 week. Time Spent: Less than 30 Minutes
[2017-06-16] MEDS: ASPIRIN 325 MG TABLET, ENT COATED PO SCH (09:40)
[2017-06-16 11:08] VITALS: BP 123/54
[2017-06-16] MEDS: DOCUSATE SODIUM 100 MG CAPSULE PO SCH (12:07)
== END 2017-06-16 11:30 | disposition home or self-care (01) ==
LOC: ER 20:23 → EH 06-15 02:51 → UNDOADMOB 06-15 02:51 → EH 06-15 05:12 → 3W 06-15 05:21
PROVIDERS: ADMIT Family Medicine; ATTEND Family Medicine
DX: G45.9 Transient cerebral ischemic attack, unspecified (principal); E10.649 Type 1 diabetes mellitus with hypoglycemia without coma; D69.6 Thrombocytopenia, unspecified; I10 Essential (primary) hypertension; R79.89 Other specified abnormal findings of blood chemistry; R26.81 Unsteadiness on feet; N28.9 Disorder of kidney and ureter, unspecified; N17.9 Acute kidney failure, unspecified; E66.9 Obesity, unspecified; D70.9 Neutropenia, unspecified; R17 Unspecified jaundice; R14.0 Abdominal distension (gaseous); Z86.73 Personal history of transient ischemic attack (TIA), and cerebral infarction without residual deficits; Z79.899 Other long term (current) drug therapy; Z79.82 Long term (current) use of aspirin; Z79.4 Long term (current) use of insulin; Z82.49 Family history of ischemic heart disease and other diseases of the circulatory system; Z68.34 Body mass index [BMI] 34.0-34.9, adult
CPT/HCPCS: 93005; 99285; 36415; 82553; 82962 ×2; 82550; 85025; 85610; 85730; 80053; 81001; 84484; 80061; 93306; 93880; 70551; 71010; 70450; 93010; G0378 ×2; A9270 ×4; J3490 ×2; J1815